=== PATIENT | female | born 1965 | race Caucasian/White ===

== ENCOUNTER 2020-02-11 00:42 | Emergency (ER) | payer OTHER ==
[~2020-02-11] VITALS: Ht 165.1 cm; Wt 64.0 kg
[2020-02-11 02:18] LABS: BASOPHILS % 0.4 % (0.0-2.0); EOSINOPHILS % 3.8 % (0.0-5.0); HEMATOCRIT. 42.9 % (36.0-48.0); HEMOGLOBIN. 14.3 g/dL (12.0-16.0); LYMPHOCYTES % 22.1 % (20.0-50.0); MEAN CORPUSCULAR HEMOGLOBIN 30.7 pg (28.0-32.0); MEAN CORPUSCULAR VOLUME 92.3 fL (81.0-99.0); MEAN PLATELET VOLUME 9.2 fl (7.4-10.4); MONOCYTES % 8.4 % (2.0-8.0); NEUTROPHILS % 65.3 % (40.0-76.0); PLATELET 280 x1000/uL (130-400); RED BLOOD CELL COUNT 4.64 mill/uL (4.2-5.4); RED CELL DISTRIBUTION WIDTH 13.5 % (11.6-14.6)
[2020-02-11 02:23] LABS: CHLORIDE 110 mEq/L (98-107)
[2020-02-11 02:29] LABS: ETHANOL BLOOD < 10 mg/dL
[2020-02-11 06:20] LABS: *AMPHETAMINES SCREEN URINE NEGATIVE (NEGATIVE); *BARBITURATES SCREEN URINE NEGATIVE (NEGATIVE); *BENZODIAZEPINES SCREEN URINE NEGATIVE (NEGATIVE); *COCAINE SCREEN URINE NEGATIVE (NEGATIVE)
[2020-02-11 06:21] LABS: CANNABINOID URINE SCREEN NEGATIVE (NEGATIVE); METHADONE URINE SCREEN NEGATIVE (NEGATIVE); OPIATES URINE SCREEN NEGATIVE (NEGATIVE); PHENCYCLIDINE URINE SCREEN NEGATIVE (NEGATIVE)
[2020-02-11 13:30] VITALS: BP 138/70
== END 2020-02-11 13:50 | disposition home or self-care (01) ==
LOC: ER 00:42
DX: F19.129 Other psychoactive substance abuse with intoxication, unspecified (principal); R41.82 Altered mental status, unspecified; I10 Essential (primary) hypertension; F10.10 Alcohol abuse, uncomplicated; Y90.0 Blood alcohol level of less than 20 mg/100 ml; Z59.0 Homelessness
CPT/HCPCS: 36415; 71045; 80053; 80305; 80320; 83880; 84484; 85025; 93005; 99285; G0480

== ENCOUNTER 2020-07-09 08:03 | Emergency (ER) | payer OTHER ==
[~2020-07-09] VITALS: Ht 165.1 cm; Wt 69.0 kg
[2020-07-09] MEDS ORDERED: TOPUD PO (08:17)
[2020-07-09 08:20] VITALS: BP 135/84
== END 2020-07-09 09:01 | disposition home or self-care (01) ==
LOC: ER 08:03
DX: R10.9 Unspecified abdominal pain (principal); R11.0 Nausea; R00.0 Tachycardia, unspecified
CPT/HCPCS: 93005; 99283

== ENCOUNTER 2020-07-15 04:02 | Emergency (ER) | payer OTHER ==
[~2020-07-15] VITALS: Ht 160 cm; Wt 63.0 kg
[~2020-07-15 04:02] MED LIST: TOPUD PO
[2020-07-15 04:27] VITALS: BP 130/80
[2020-07-15] MEDS ORDERED: ACET-2708 MT (05:28)
[2020-07-15] MEDS ORDERED: ACETAMINOPHEN 325MG TABLET PO ONE (05:30)
== END 2020-07-15 06:04 | disposition home or self-care (01) ==
LOC: ER 04:02
DX: M54.2 Cervicalgia (principal); M79.671 Pain in right foot; M79.672 Pain in left foot
CPT/HCPCS: 99283